=== PATIENT | female | born 1980 | race Caucasian/White ===

== ENCOUNTER 2017-03-10 03:17 | Emergency (ER) | payer OTHER ==
[~2017-03-10 03:17] MED LIST: APAP/HYDROCODON1 T13 PO; CARAFATE1 GM PO; COL100 PO; ELA25 PO; FLA250 PO; LEVAQUIN750 MG PO; MOT600 PO; NEU300 PO; NORCO1 TA2 PO; PRI20 PO; XAN1
[2017-03-10 05:01] VITALS: BP 119/76
== END 2017-03-10 05:01 | disposition home or self-care (01) ==
LOC: ED 03:17
DX: H91.92 Unspecified hearing loss, left ear (principal); M54.5 Low back pain; Z79.899 Other long term (current) drug therapy; Z90.721 Acquired absence of ovaries, unilateral
CPT/HCPCS: J1885

== ENCOUNTER 2017-03-16 18:38 | Inpatient (IN) | payer OTHER ==
[~2017-03-16] VITALS: Ht 162.6 cm; Wt 52.0 kg
[~2017-03-16 18:38] MED LIST changes: +FENTANYL TOP; +NEURONTIN800 MG PO; +NOR10T PO; +XANAX0.25 MG PO
[2017-03-16 20:38] LABS: CALCIUM 9.1 mg/dL (8.5-10.1); CARBON DIOXIDE 28.6 mmol/L (21-32); CHLORIDE SERUM 109 mmol/L (98-107); CREATININE SERUM 0.9 mg/dL (0.6-1.0); GFR1 > 60 mL/min; GLUCOSE SERUM 94 mg/dL (74-106); POTASSIUM SERUM 4.3 mmol/L (3.5-5.1); SODIUM SERUM 146 mmol/L (136-145)
[2017-03-16 20:39] LABS: BASOPHIL % 0.3 % (0-2); PLATELET COUNT 286 x10^3mcL (130-400); RED CELL DISTRIBUTION WIDTH 13.6 % (11.5-14.5)
[2017-03-16 20:44] LABS: ALBUMIN 4.1 g/dL (3.4-5.0); ALKALINE PHOSPHATASE 62 U/L (46-116); ALT/SGPT 30 U/L (14-59); AST/SGOT 21 U/L (15-37); BILIRUBIN TOTAL 0.3 mg/dL (0.20-1.00); TOTAL PROTEIN, SERUM 7.4 g/dL (6.4-8.2)
[2017-03-16 21:49] LABS: AMPHETAMINE QUAL UR NONE DETECTED (NEG <=1000)
[2017-03-17] VITALS: BP 114/74; BP 118/74
[2017-03-17 01:04] LABS: T3 TOTAL 1.07 ng/mL
[2017-03-17 01:43] LABS: CHOLESTEROL/HDL RATIO 2.9
[2017-03-17 01:48] LABS: FREE T4 0.57 ng/dL (0.76-1.46); FREE THYROXINE INDEX 1.8 ug/dL (1.4-4.5); T4(THYROXINE) 6.1 ug/dL (4.7-13.3)
[2017-03-17 05:51] VITALS: BP 108/70
[2017-03-17 06:32] LABS: CALCIUM 8.8 mg/dL (8.5-10.1); CARBON DIOXIDE 31.2 mmol/L (21-32); CHLORIDE SERUM 106 mmol/L (98-107); CREATININE SERUM 0.9 mg/dL (0.6-1.0); GFR1 > 60 mL/min; GLUCOSE SERUM 116 mg/dL (74-106); PHOSPHOROUS 5.1 mg/dL (2.5-4.9); POTASSIUM SERUM 3.9 mmol/L (3.5-5.1); SODIUM SERUM 144 mmol/L (136-145)
[2017-03-17 06:50] LABS: BASOPHIL % 0.5 % (0-2); PLATELET COUNT 281 x10^3mcL (130-400); RED CELL DISTRIBUTION WIDTH 13.2 % (11.5-14.5)
[2017-03-17] MEDS ORDERED: HYDROXYZINE PAM50 MG PO (12:19)
[2017-03-17 15:21] VITALS: BP 111/71
[2017-03-18 03:07] VITALS: BP 109/63
== END 2017-03-18 09:15 | disposition left against medical advice (07) | DRG 750 ==
LOC: ED 18:38 → DU 22:36 → MU 03-17 17:53
PROVIDERS: Emergency Medicine; ADMIT Family Medicine
DX: F25.0 Schizoaffective disorder, bipolar type (principal); E44.0 Moderate protein-calorie malnutrition; F15.10 Other stimulant abuse, uncomplicated; F41.0 Panic disorder [episodic paroxysmal anxiety]; F17.210 Nicotine dependence, cigarettes, uncomplicated; E83.51 Hypocalcemia; S20.212A Contusion of left front wall of thorax, initial encounter; S62.663A Nondisplaced fracture of distal phalanx of left middle finger, initial encounter for closed fracture; M85.89 Other specified disorders of bone density and structure, multiple sites; Y04.0XXA Assault by unarmed brawl or fight, initial encounter; Y93.89 Activity, other specified; Y92.017 Garden or yard in single-family (private) house as the place of occurrence of the external cause
CPT/HCPCS: 80307; 83880; 84439; G0480; J1170; J1885; J2060; J7030; Q0092; Q0177

== ENCOUNTER 2017-03-18 10:02 | Emergency (ER) | payer OTHER ==
[~2017-03-18 10:02] MED LIST changes: +HYDROXYZINE PAM50 MG PO
[2017-03-18 10:14] VITALS: BP 115/67
[2017-03-18 10:49] LABS: BASOPHIL % 0.4 % (0-2); PLATELET COUNT 240 x10^3mcL (130-400); RED CELL DISTRIBUTION WIDTH 13.4 % (11.5-14.5)
[2017-03-18 10:52] LABS: CALCIUM 8.4 mg/dL (8.5-10.1); CHLORIDE SERUM 107 mmol/L (98-107); CREATININE SERUM 0.7 mg/dL (0.6-1.0); GFR1 > 60 mL/min; GLUCOSE SERUM 83 mg/dL (74-106); POTASSIUM SERUM 4.2 mmol/L (3.5-5.1); SODIUM SERUM 142 mmol/L (136-145)
[2017-03-18 10:57] LABS: ALKALINE PHOSPHATASE 56 U/L (46-116); ALT/SGPT 56 U/L (14-59); AST/SGOT 41 U/L (15-37); BILIRUBIN TOTAL 0.31 mg/dL (0.20-1.00); TOTAL PROTEIN, SERUM 6.2 g/dL (6.4-8.2)
[2017-03-18 11:00] LABS: ALBUMIN 3.3 g/dL (3.4-5.0)
== END 2017-03-18 12:35 | disposition home or self-care (01) ==
LOC: ED 10:02
PROVIDERS: Emergency Medicine
DX: Z02.89 Encounter for other administrative examinations (principal)
CPT/HCPCS: 80307; G0480

== ENCOUNTER 2017-03-18 15:12 | Emergency (ER) | payer OTHER ==
[~2017-03-18] VITALS: Ht 162.6 cm; Wt 56.7 kg
[2017-03-18 15:57] VITALS: BP 122/83
== END 2017-03-18 16:46 | disposition home or self-care (01) ==
LOC: ED 15:12
DX: Z53.21 Procedure and treatment not carried out due to patient leaving prior to being seen by health care provider (principal)

== ENCOUNTER 2017-03-19 03:29 | Emergency (ER) | payer OTHER ==
[2017-03-19 05:34] VITALS: BP 116/70
== END 2017-03-19 05:34 | disposition home or self-care (01) ==
LOC: ED 03:29
DX: S20.219A Contusion of unspecified front wall of thorax, initial encounter (principal); X58.XXXA Exposure to other specified factors, initial encounter; Y99.8 Other external cause status; Y93.89 Activity, other specified; Y92.89 Other specified places as the place of occurrence of the external cause

== ENCOUNTER 2017-05-24 23:51 | Emergency (ER) | payer OTHER ==
[2017-05-25 01:45] LABS: CALCIUM 8.7 mg/dL (8.5-10.1); CARBON DIOXIDE 27.7 mmol/L (21-32); CHLORIDE SERUM 108 mmol/L (98-107); CREATININE SERUM 0.8 mg/dL (0.6-1.0); GFR1 > 60 mL/min; GLUCOSE SERUM 77 mg/dL (74-106); POTASSIUM SERUM 3.3 mmol/L (3.5-5.1); SODIUM SERUM 145 mmol/L (136-145)
[2017-05-25 01:49] LABS: AMPHETAMINE QUAL UR NONE DETECTED (NEG <=1000)
[2017-05-25 05:23] VITALS: BP 133/77
== END 2017-05-25 05:23 | disposition home or self-care (01) ==
LOC: ED 23:51
PROVIDERS: Emergency Medicine
DX: G40.909 Epilepsy, unspecified, not intractable, without status epilepticus (principal); E87.6 Hypokalemia; Z79.899 Other long term (current) drug therapy; Z79.891 Long term (current) use of opiate analgesic; Z88.0 Allergy status to penicillin; Z88.1 Allergy status to other antibiotic agents; Z88.5 Allergy status to narcotic agent; Z88.8 Allergy status to other drugs, medicaments and biological substances; Z91.048 Other nonmedicinal substance allergy status
CPT/HCPCS: 36415; J1885

== ENCOUNTER 2017-05-25 06:22 | Emergency (ER) | payer OTHER ==
[2017-05-25 08:33] VITALS: BP 125/67
== END 2017-05-25 08:33 | disposition home or self-care (01) ==
LOC: ED 06:22
DX: R56.9 Unspecified convulsions (principal); Z88.1 Allergy status to other antibiotic agents; Z88.5 Allergy status to narcotic agent; Z88.8 Allergy status to other drugs, medicaments and biological substances

== ENCOUNTER 2017-06-25 19:12 | Emergency (ER) | payer OTHER ==
[2017-06-25 19:18] VITALS: BP 131/72
== END 2017-06-25 21:48 | disposition left against medical advice (07) ==
LOC: ED 19:12
DX: Z53.21 Procedure and treatment not carried out due to patient leaving prior to being seen by health care provider (principal)

== ENCOUNTER 2017-08-06 05:56 | Emergency (ER) | payer OTHER ==
[~2017-08-06] VITALS: Ht 162.6 cm; Wt 57.6 kg
[2017-08-06 06:05] VITALS: BP 105/68
== END 2017-08-06 06:27 | disposition left against medical advice (07) ==
LOC: ED 05:56
DX: F20.9 Schizophrenia, unspecified (principal); M25.562 Pain in left knee; F41.9 Anxiety disorder, unspecified; M54.30 Sciatica, unspecified side

== ENCOUNTER 2017-10-31 14:18 | Emergency (ER) | payer OTHER ==
[2017-10-31 17:29] VITALS: BP 115/60
== END 2017-10-31 17:29 | disposition home or self-care (01) ==
LOC: ED 14:18
DX: S00.83XA Contusion of other part of head, initial encounter (principal); M54.30 Sciatica, unspecified side; Z90.721 Acquired absence of ovaries, unilateral; Y09 Assault by unspecified means; Y93.89 Activity, other specified; Y92.89 Other specified places as the place of occurrence of the external cause; Y99.8 Other external cause status

== ENCOUNTER 2017-11-13 10:22 | Emergency (ER) | payer OTHER ==
[2017-11-13 13:10] VITALS: BP 98/69
== END 2017-11-13 13:10 | disposition home or self-care (01) ==
LOC: ED 10:22
DX: S20.212A Contusion of left front wall of thorax, initial encounter (principal); X58.XXXA Exposure to other specified factors, initial encounter; Y93.89 Activity, other specified; Y99.8 Other external cause status; Y92.89 Other specified places as the place of occurrence of the external cause

== ENCOUNTER 2018-03-07 03:25 | Emergency (ER) | payer OTHER ==
[~2018-03-07] VITALS: Ht 162.6 cm; Wt 61.2 kg
[2018-03-07 03:33] VITALS: Ht 162.6 cm; Wt 61.2 kg
[2018-03-07 04:45] VITALS: BP 116/81
== END 2018-03-07 04:46 | disposition home or self-care (01) ==
LOC: ED 03:25
DX: G40.909 Epilepsy, unspecified, not intractable, without status epilepticus (principal)